=== PATIENT | female | born 1995 | race Caucasian/White ===

== ENCOUNTER 2016-10-15 13:25 | Emergency (ER) | payer SELFPAY ==
[~2016-10-15] VITALS: Ht 175.3 cm; Wt 108.0 kg
[2016-10-15] MEDS ORDERED: ONDANSETRON ODT 4 MG TAB.RAPDIS PO ONE (14:30)
[2016-10-15] MEDS ORDERED: HYDROCODONE/APAP 5/325MG TABLET. PO ONE (14:30)
[2016-10-15 14:36] LABS: BASO % 0 % (0-3); EOS % 1 % (0-3); HEMATOCRIT 39.6 % (36.0-47.0); HEMOGLOBIN 13.6 g/dL (12.0-15.5); LYMPH # 2.6 x10^3/uL (1.0-4.8); LYMPH % 20 % (24-48); MEAN CORPUSCULAR HEMOGLOBIN 31 pg (25-35); MEAN CORPUSCULAR HGB CONC 34 g/dL (31-37); MEAN CORPUSCULAR VOLUME 89 fL (79-100); MONO % 9 % (0-9); NEUT % 70 % (31-73); PLATELET COUNT 228 x10^3/uL (140-400); RED BLOOD COUNT 4.45 x10^6/uL (3.50-5.40); RED CELL DISTRIBUTION WIDTH 12.8 % (11.5-14.5); WHITE BLOOD COUNT 12.9 x10^3/uL (4.0-11.0)
[2016-10-15 14:51] LABS: CREATININE 0.5 mg/dL (0.6-1.0); GFR 157.3; POTASSIUM 3.9 mmol/L (3.5-5.1)
[2016-10-15 14:56] LABS: ALBUMIN 3.1 g/dL (3.4-5.0); DIRECT BILIRUBIN 0.1 mg/dL (0.0-0.2); TOTAL BILIRUBIN 0.8 mg/dL (0.2-1.0); TOTAL PROTEIN 7.1 g/dL (6.4-8.2)
[2016-10-15 14:59] LABS: BILIRUBIN,URINE NEGATIVE (NEG); GLUCOSE,URINE NEGATIVE (NEG); NITRITE,URINE NEGATIVE (NEG); PROTEIN,URINE NEGATIVE (NEG-TRACE); UROBILINOGEN,URINE 0.2 mg/dL (0.2 mg/dL)
[2016-10-15 15:11] LABS: BACTERIA,URINE MODERATE /HPF (0-FEW); SQUAMOUS EPITHELIAL CELL,UR MOD /LPF; WBC,URINE >40 /HPF (0-4)
[2016-10-15 15:12] LABS: TRICHOMONAS,URINE PRESENT
[2016-10-15 15:17] LABS: NEG OBC UR NEG; POS OBC UR POS
--- NOTE | 2016-10-15 15:28 | RAD ---
Obstetrical ultrasound, 10/15/2016: History: Abdominal pain, Transabdominal scans were obtained. There is a single intrauterine fetus in a variable orientation. The biparietal diameter measures 3.9 cm compatible with a gestational age of nearly 18 weeks. This corresponds well to the other measurements and yields a sonographic EDC of 03/17/2017. Normal activity and heart motion were seen. The heart rate is 147 bpm. The survey is unremarkable. The placenta lies anteriorly with no evidence of placenta previa or periplacental hemorrhage. A normal amount of amniotic fluid is evident. The cervical length is approximately 5 cm. IMPRESSION: Single viable uterine fetus of approximately 18 weeks gestational age as described above.
[2016-10-15] MEDS ORDERED: CEPH-264 PO (15:43)
--- NOTE | 2016-10-15 15:43 | PHYS DOC ---
Past Medical History Past Medical History: No Pertinent History Past Surgical History: Appendectomy, Tonsillectomy Additional Information: 10/12 ppd Alcohol Use: None Drug Use: None Adult General Chief Complaint Chief Complaint: ABDOMINAL PAIN IN HPI HPI 21-year-old female presenting to the emergency department with bilateral flank pain. Pain is sharp nonradiating. She denies polyuria or dysuria. She denies fevers or chills. She complains of mild intermittent suprapubic abdominal pain. Duration intermittent. No specific timing. No alleviating factors. She reports pain proximally 4 months . She does not have an ear pull machine operator. Review of Systems Review of Systems ROS negative for chest pain shortness of breath fevers chills nausea or vomiting. All other review of systems is negative unless otherwise noted in history of present illness. Current Medications Current Medications Current Medications Medications (Trade) Dose Ordered Sig/Moe Start Time Stop Time Status Last Admin Dose Admin Acetaminophen/ Hydrocodone Bitart (Lortab 5/325) 2 tab 1X ONCE 10/15/16 14:30 10/15/16 14:31 DC 10/15/16 15:27 2 TAB Azithromycin (Zithromax) 1,000 mg 1X ONCE 10/15/16 15:45 10/15/16 15:46 DC 10/15/16 16:44 1,000 MG Ceftriaxone Sodium (Rocephin Im) 250 mg 1X ONCE 10/15/16 15:45 10/15/16 16:26 DC 10/15/16 16:45 250 MG Metronidazole (Flagyl) 2,000 mg 1X ONCE 10/15/16 15:45 10/15/16 15:53 DC 10/15/16 16:44 2,000 MG Ondansetron HCl (Zofran Odt) 4 mg 1X ONCE 10/15/16 14:30 10/15/16 14:31 DC 10/15/16 15:27 4 MG Allergies Allergies Allergies Coded Allergies Type Severity Reaction Last Updated Verified amoxicillin Allergy Severe hives 10/15/16 Yes Physical Exam Physical Exam Constitutional: Well developed, well nourished, no acute distress, non-toxic appearance. HENT: Normocephalic, atraumatic, bilateral external ears normal, oropharynx moist, no oral exudates, nose normal. [] Eyes: PERRLA, EOMI, conjunctiva normal, no discharge. Neck: Normal range of motion, no tenderness, supple, no stridor. [] Cardiovascular:Heart rate regular rhythm, no murmur Lungs & Thorax: Bilateral breath sounds clear to auscultation [] Abdomen: Soft mildly gravid abdomen nontender abdomen without rebound tenderness or guarding present. Negative McBurneys point. Negative Tapia sign. No ecchymosis present. Vaginal exam in the presence of a female nurse shows mild erythema of the cervix with vogt discharge consistent with probable trichomoniasis. No fluctuance in the adnexa present. Os is closed. No bleeding present. Skin: Warm, dry, no erythema, no rash. Back: No tenderness, no CVA tenderness. [] Extremities: No tenderness, no cyanosis, no clubbing, ROM intact, no edema. Neurologic: Alert and oriented X 3, normal motor function, normal sensory function, no focal deficits noted. [] Psychologic: Affect normal, judgement normal, mood normal. Current Patient Data Vital Signs Vital Signs Date Time Temp Pulse Resp B/P Pulse Ox O2 Delivery O2 Flow Rate FiO2 10/15/16 16:55 76 20 141/69 100 10/15/16 13:52 98.4 Room Air 98.4 Lab Values Laboratory Tests Test 10/15/16 13:40 White Blood Count 12.9x10^3/uL (4.0-11.0) H Red Blood Count 4.45x10^6/uL (3.50-5.40) Hemoglobin 13.6g/dL (12.0-15.5) Hematocrit 39.6% (36.0-47.0) Mean Corpuscular Volume 89fL (79-100) Mean Corpuscular Hemoglobin 31pg (25-35) Mean Corpuscular Hemoglobin Concent 34g/dL (31-37) Red Cell Distribution Width 12.8% (11.5-14.5) Platelet Count 228x10^3/uL (140-400) Neutrophils (%) (Auto) 70% (31-73) Lymphocytes (%) (Auto) 20% (24-48) L Monocytes (%) (Auto) 9% (0-9) Eosinophils (%) (Auto) 1% (0-3) Basophils (%) (Auto) 0% (0-3) Neutrophils # (Auto) 9.0x10^3uL (1.8-7.7) H Lymphocytes # (Auto) 2.6x10^3/uL (1.0-4.8) Monocytes # (Auto) 1.2x10^3/uL (0.0-1.1) H Eosinophils # (Auto) 0.1x10^3/uL (0.0-0.7) Basophils # (Auto) 0.0x10^3/uL (0.0-0.2) Urine Collection Type Unknown Urine Color Val Urine Clarity Cloudy Urine pH 6.0 Urine Specific [place] 1.025 Urine Protein Negativemg/dL (NEG-TRACE) Urine Glucose (UA) Negativemg/dL (NEG) Urine Ketones (Stick) Negativemg/dL (NEG) Urine Blood Trace (NEG) Urine Nitrite Negative (NEG) Urine Bilirubin Negative (NEG) Urine Urobilinogen Dipstick 0.2mg/dL (0.2 mg/dL) Urine Leukocyte Esterase Large (NEG) Urine RBC 3-5/HPF (0-2) Urine WBC >40/HPF (0-4) Urine Squamous Epithelial Cells Mod/LPF Urine Bacteria Moderate/HPF (0-FEW) Urine Mucus Marked/LPF Urine Trichomonas Present Urine Test Positive (NEG) Maternal Serum HCG Beta Subunit 80804cBQ/mL (0-6) H Sodium Level 139mmol/L (136-145) Potassium Level 3.9mmol/L (3.5-5.1) Chloride Level 104mmol/L (98-107) Carbon Dioxide Level 22mmol/L (21-32) Anion Gap 13 (6-14) Blood Urea Nitrogen 9mg/dL (7-20) Creatinine 0.5mg/dL (0.6-1.0) L Estimated GFR (Cockcroft-Gault) 157.3 Glucose Level 83mg/dL (70-99) Calcium Level 9.0mg/dL (8.5-10.1) Total Bilirubin 0.8mg/dL (0.2-1.0) Direct Bilirubin 0.1mg/dL (0.0-0.2) Aspartate Amino Transferase (AST) 15U/L (15-37) Alanine Aminotransferase (ALT) 22U/L (14-59) Alkaline Phosphatase 65U/L (46-116) Total Protein 7.1g/dL (6.4-8.2) Albumin 3.1g/dL (3.4-5.0) L Lipase 88U/L (73-393) Laboratory Tests 10/15/16 13:40 Laboratory Tests 10/15/16 13:40 EKG EKG [] Radiology/Procedures Radiology/Procedures [] Course & Med Decision Making Course & Med Decision Making Pertinent Labs and Imaging studies reviewed. (See chart for details) 21-year-old 18wk by US female presenting the emergency department with flank pain and mild suprapubic abdominal pain. On vital signs, the patient was afebrile and vital signs were unremarkable. Physical exam showed nontender abdomen. No CVA tenderness present. Vaginal exam in presence of a female nurse was suggestive of trichomoniasis. Could not rule out infection. Otherwise urinary analysis suggestive of urinary tract infection. Leukocytosis present. Chemistry panel unremarkable. Beta hCG elevated. Ultrasound showed single viable intrauterine . Patient received Rocephin and azithromycin and Flagyl in the emergency department. She was discharged home on Keflex for urinary tract infection. Follow-up with our ear pull machine operator in the next day or 2 to establish care. Dragon Disclaimer Dragon Disclaimer This electronic medical record was generated, in whole or in part, using a voice recognition dictation system. Departure Departure Impression: Primary Impression: Urinary tract infection Additional Impressions: Trichomoniasis Abdominal pain affecting Disposition: 01 HOME, SELF-CARE Condition: STABLE Referrals: NO PCP (PCP) JOSE LUIS SCHULTZ MD 1-2 DAYS Patient Instructions: Trichomoniasis Additional Instructions: Thank you for allowing us to participate in your care today. Followup with OB today or tomorrow. If you do not have a primary care provider you can ask for a list of our primary care providers. Return to the emergency department you have any new or concerning findings. This should be evaluated by the primary care physician and any necessary consulting services for continued management within a few days after discharge. Return to emergency room if you have any new or concerning symptoms including but not limited to fever, chills, nausea, vomiting, intractable pain, any new rashes, chest pain, shortness of air, uncontrolled bleeding, difficulty breathing, and/or vision loss. Scripts Cephalexin (Keflex)500 Mg Capsule1 Cap PO BID #14 CAP Prov:TALIA CARRILLO MD 10/15/16 Problem Qualifiers TALIA CARRILLO MD Oct 15, 2016 15:43
[2016-10-15] MEDS ORDERED: METRONIDAZOLE 500 MG TABLET. PO ONE (15:45)
[2016-10-15] MEDS ORDERED: CEFTRIAXONE IM 250 MG VIAL. IM ONE (15:45)
[2016-10-15] MEDS ORDERED: AZITHROMYCIN 250 MG TABLET PO ONE (15:45)
[2016-10-15 16:55] VITALS: BP 141/69
--- NOTE | 2016-10-19 16:45 | VNOTE ---
CALL BACK NOTE CALL BACK Microbiology 10/15/16 Wet Prep - Final, Complete 10/15/16 Urine Culture - Final, Complete 10/15/16 Urine Culture Result 1 (OTTO) - Final, Complete The patient's STD swab returned positive for gonorrhea and chlamydia. She was treated appropriately while in the emergency department. I attempted to contact the patient to make her aware of the results. Her voicemail box was full. She will receive a certified letter to inform her of the results. MOIRA WHIPPLE Oct 19, 2016 16:45
== END 2016-10-15 17:00 | disposition home or self-care (01) ==
LOC: ER 13:25
DX: O23.42 Unspecified infection of urinary tract in pregnancy, second trimester (principal); A59.9 Trichomoniasis, unspecified; O99.332 Smoking (tobacco) complicating pregnancy, second trimester; Z3A.18 18 weeks gestation of pregnancy; Z90.49 Acquired absence of other specified parts of digestive tract; Z88.1 Allergy status to other antibiotic agents
CPT/HCPCS: 36415; 76801; 80048; 80076; 81001; 81025; 83690; 84702; 85027; 86901; 87086; 87491; 87591; 96372; 99285; J0696; Q0111; Q0144; Q0162